=== PATIENT | female | born 1990 | race Hispanic/Latino ===

== ENCOUNTER 2016-11-13 20:09 | Emergency (ER) | payer OTHER ==
[~2016-11-13 20:09] MED LIST: DOXYCYCLINE MO100 MG PO; FLAG500 PO; IBUPROFEN800 M1 PO; IBUPROFEN800 MG PO; PENICILLIN V P500 M1 PO
[2016-11-13 20:25] VITALS: BP 138/83
[2016-11-13] MEDS ORDERED: PRENATAL TABLE1 EACH PO (20:49)
--- NOTE | 2016-11-13 21:44 | ED NEURO DEFICIT/STROKE ---
History of Present Illness General Chief Complaint: General Adult Stated Complaint: LEFT SIDE OF BODY SWOLLEN AND NUMB, X 1 HR Source: patient Exam Limitations: no limitations Vital Signs & Intake/Output Vital Signs & Intake/Output Vital Signs Date Time Temp Pulse Resp B/P Pulse O2 O2 Flow FiO2 Ox Delivery Rate 11/13 2024 97.6 82 16 138/83 100 Room Air Allergies Coded Allergies: NO KNOWN ALLERGIES (12/26/15) Reconcile Medications Vit/Iron Fumarate/FA ( Tablet) (Unknown Strength) TABLET ( Unknown Dose) PO PRN SUPPLEMENT (Reported) Triage Note: TRIAGE; PT TO ED WITH RIGHT SIDED BODY TINGLING AND SWELLING. STATES HER RIGHT HAND STARTED TO SWELL THE OTHER DAY, TOOK BENADRYL AND IBUPROFEN WITH NO RELIEF. KEPT GETTING WORSE, TOOK A CLARITIN TODAY BECUASE SHE FELT HER FACE FEELING LIKE IT WAS SWELLING. PT STATES SHE FEELS SOB AT TIMES. UNSURE OF STATUS. Triage Nurses Notes Reviewed? yes : No Patient currently breastfeeds: No HPI: 26-year-old female presents the emergency department with multiple complaints. She noted 2 days ago that the right thenar eminence was mildly swollen and she was getting tingling sensation in the right forearm area. 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 She is also noticing tingling in the right side of her face in the right anterior lateral thigh region and intermittently into the right forearm. Her symptoms have been intermittent and inconsistent, not worsening over the last 2- 3 days. She also notes that she is 3 days late for her period and is to double home tests that have been negative. She denies any abdominal pain fever or flulike illness, she denies any tick bite any rashes and any weakness or dropping things no coordination difficulty no headaches no visual changes. There are no modifying factors. No history of same. No left-sided symptoms. She is not on any medications does not take any control. She states that there is no swelling in her fingers, her rings do not feel tight, there is no limited range of motion. (MADDIE ELLIS) Past History Travel History Traveled to [place] past 21 day No Medical History Any Pertinent Medical History? 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 No (MADDIE ELLIS) Review of Systems Review of Systems Constitutional: Reports: see HPI. EENTM: Reports: no symptoms. Respiratory: Reports: no symptoms. Cardiovascular: Reports: no symptoms. GI: Reports: no symptoms. Genitourinary: Reports: no symptoms. Musculoskeletal: Reports: no symptoms. Skin: Reports: no symptoms. Neurological/Psychological: Reports: see HPI. Hematologic/Endocrine: Reports: no symptoms. Immunologic/Allergic: Reports: no symptoms. All Other Systems: Reviewed and Negative (MADDIE ELLIS) Physical Exam Physical Exam General Appearance: well developed/nourished Cranial Nerves: normal hearing, normal speech, PERRL Comments: Well-developed well-nourished person in no acute distress HEENT: Normal EENT exam, extraocular motion intact, no nystagmus. Pupils equally round and reactive to light. Nose is atraumatic. External auditory canal and Tympanic membranes clear. Pharynx normal. No swelling or edema. Neck: Supple, no lymphadenopathy, normal range of motion without pain or tenderness Back: Nontender, no CVA tenderness. Full range of motion Cardiovascular: Regular rate and rhythms no murmurs, normal JVP Respiratory: Chest nontender. No respiratory distress. Breath sounds clear to auscultation bilaterally Abdomen: Soft, nontender nondistended, no appreciable organomegaly. Normal bowel sounds. No ascites Extremity: No edema, no calf tenderness to palpation, normal and equal pulses. There is no swelling, negative Phalen's test, negative Tinel's at the carpal tunnel and elbow at the right side, there is no weakness, no dropping things There is, when compared bilaterally, minimal hypertrophy of the right thenar eminence when compared to the left. There is no swelling or muscle tumor or mass noted. Neuro: Alert oriented x3, motor sensory normal, cranial nerves II through XII grossly intact. Skin: No appreciable rash on exposed skin, skin is warm and dry. Psych: Mood and affect is normal, memory and judgment is normal. Core Measures CVA/TIA Diagnosis: No Severe Sepsis Present: No Septic Shock Present: No (MADDIE ELLIS) Progress Differential Diagnosis: acute glaucoma, Knowles's Palsy, drug intoxication, electrolyte imbalance, encephalitis, hypoglycemia, intracranial Hem., intracranial mass/tumor, meningitis, migraine BRANCH, seizure disorder, stroke, subarachnoid Hem., vertebrobasilar insuff. Plan of Care: Patient with vague mild neurologic symptoms that are intermittent and only on the right side. Considered CVA TIA transverse myelitis myasthenia gravis Guillain-Navarro syndrome etc. however she has no weakness or significant pain or objective swelling or functional deficit. I advised her to follow-up with her primary care doctor or neurologist if symptoms continue and return to the ER with worsening symptoms including swelling weakness numbness. She has no DVT risk factors of the upper extremity. Initial ED EKG: none (MADDIE ELLIS) Departure Departure Disposition: HOME OR SELF CARE Condition: Stable Clinical Impression Primary Impression: Paresthesia Referrals: GILBERT CANDELARIO,DAVID CEDEÑO APRN (PCP/Family) Additional Instructions: TAKE ALEVE, 2 TABS TWICE A DAY. FOLLOW UP WITH YOUR DOCTOR OR NEUROLOGIST IF THE NUMBNESS OR SYMPTOMS PERSIST NEXT WEEK. RETURN TO THE ER WITH SWELLING OF THE HAND OR ARM, SEVERE PAIN, WEAKNESS IN THE ARM OR HAND. Departure Forms: Customer Survey General Discharge Information (MADDIE ELLIS) PA/STATE TESTED NURSING ASSISTANT Co-Sign Statement Statement: ED Attending supervision documentation- [] I saw and evaluated the patient. I have also reviewed all the pertinent lab results and diagnostic results. I agree with the findings and the plan of care as documented in the PA's/STATE TESTED NURSING ASSISTANT's documentation. x I have reviewed the ED Record and agree with the PA's/STATE TESTED NURSING ASSISTANT's documentation. [] Additions or exceptions (if any) to the PAs/STATE TESTED NURSING ASSISTANT's note and plan are summarized below: [] (KRISTINE CANDELARIO,DERRELL)
== END 2016-11-13 21:53 ==
LOC: ERH 20:09
DX: R20.2 Paresthesia of skin (principal)
CPT/HCPCS: 99282